=== PATIENT | female | born 1995 | race Caucasian/White ===

== ENCOUNTER 2018-06-25 18:25 | Emergency (ER) | payer OTHER ==
[2018-06-25 19:39] LABS: #Basophils 0.1 thou/uL (0.0-0.2); #Eosinphils 0.1 thou/uL (0.0-0.7); #Lymphocytes 2.5 thou/uL (1.20-3.40); #Monocytes 0.6 thou/uL (0.11-0.59); #Neutrophils 5.9 thou/uL (1.40-6.50); %Basophils 0.9 % (0.0-1.0); %Eosinophils 0.7 % (0.0-10.0); %Lymphocytes 27.1 % (21.0-51.0); %Monocytes 6.5 % (0.0-10.0); %Neutrophils 64.8 % (42.0-75.0); Hemoglobin 13.2 g/dL (12.0-16.0); Mean Corpuscular HGB CONC 33.1 g/dL (32.0-36.0); Mean Corpuscular Volume 87.6 fL (78.0-98.0); Platelet Count 315 thou/uL (130-400); RBC Distribution Width 10.9 % (11.5-14.5); Red Blood Cell (RBC) Count 4.56 mill/uL (4.20-5.40); White Blood Cell (WBC) Count 9.2 thou/uL (4.8-10.8)
--- NOTE | 2018-06-25 21:21 | ULT ---
PELVIC ULTRASOUND: 06/25/18 HISTORY: Abdominal pain, cramping and bleeding. Real time imaging of the pelvis was obtained by transabdominally as well as with an endovaginal probe . These show uterus measuring 4.0 x 4.8 x 7.3 cm. Endometrium is thickened. It is somewhat heterogene ous in appearance and measures in the 1.2 cm range. Right and left ovaries are normal in appearance. DOPPLER EVALUATION WITH SPECTRAL ANALYSIS: Normal flow shown to the adnexal region. IMPRESSION: Thickened endometrium. No intrauterine or ectopic gestational sac is identified. Correlation with bet a HCG is recommended. POS: [facility]EN
[2018-06-28 01:20] LABS: Chlamydia by PCR Not Detected (NotDetected); GC by PCR Not Detected (NotDetected)
== END 2018-06-25 21:43 | disposition home or self-care (01) ==
LOC: ERS 18:25
DX: N92.1 Excessive and frequent menstruation with irregular cycle (principal)
CPT/HCPCS: 36415; 76856; 84702; 85025; 86900; 86901; 87480; 87491; 87510; 87591; 87660